=== PATIENT | male | born 1985 | race Caucasian/White ===

== ENCOUNTER 2020-12-17 23:59 | Observation (INO) | payer SELFPAY ==
[2020-12-18] VITALS (21 sets, daily range): BP systolic 99–130; BP diastolic 64–77; PULSE 57–82; RESP 12–20; TEMP 36.4–37.1; O2SAT 90–99; BMI 28.8
--- NOTE | 2020-12-18 00:15 | CTR_ITS ---
PROCEDURE INFORMATION: Exam: CT Abdomen And Pelvis With Contrast Exam date and time: 12/18/2020 12:15 AM Age: 35 years old Clinical indication: Pain and abnormal findings; Abnormal lab test; Elevated wbc; Abdominal pain; Localized; Right lower quadrant (rlq); Additional info: Rlq pain TECHNIQUE: Imaging protocol: Computed tomography of the abdomen and pelvis with contrast. Radiation optimization: All CT scans at this facility use at least one of these dose optimization techniques: automated exposure control; mA and/or kV adjustment per patient size (includes targeted exams where dose is matched to clinical indication); or iterative reconstruction. Contrast material: OMNI 300; Contrast volume: 95 ml; Contrast route: INTRAVENOUS (IV); COMPARISON: US Abdomen* [id number] 10/18/2016 8:53 PM RADIATION DOSE METRICS: Total DLP (mGy-cm): 1574.51 FINDINGS: Liver: Unremarkable liver. Gallbladder and bile ducts: No calcified gallstones or biliary ductal dilatation. Pancreas: Unremarkable pancreas. Spleen: No splenomegaly. Adrenal glands: No adrenal mass. Kidneys and ureters: No hydronephrosis or renal mass. Stomach and bowel: Eidh-hn-dvubwrau dilatation of several jejunal loops. No dilatation of the terminal ileum or multiple ileal loops. Probable transitional zone at the site of an acute bend of a small bowel loop in the left mid abdomen. Elongation of the sigmoid colon into the right middle to lower abdomen. Appendix: Enlargement of the appendix to a maximal diameter of 12.3 mm with haziness and minimal stranding along its tip and near the more proximal aspect of the appendix in the right lower quadrant. Intraperitoneal space: No free air. Vasculature: Inferior looping of the proximal celiac artery. Unremarkable aorta. Lymph nodes: No enlarged nodes. Urinary bladder: Unremarkable as visualized. Reproductive: Unremarkable as visualized. Bones/joints: Old slight compression fractures. Degeneration of a few discs. Soft tissues: Small left inguinal hernia containing fat. CT/CT abdomen pelvis w con* [id number] IMPRESSION: Findings suggestive of acute appendicitis in addition to low-grade small bowel obstruction. No free air. Other findings detailed above. Radiation Dose CTDIVOL = (mGy): DLP = 1574.51 (mGy-cm)
[2020-12-18] MEDS: iohexol 300 mg/mL 100 mL Btl IV (00:45)
[2020-12-18] MEDS: ketorolac 30 mg/mL INJ 15 MG IVP (00:53)
[2020-12-18] MEDS: ondansetron 2 mg/ML SDV 2 mL 4 MG IVP (00:55)
[2020-12-18] MEDS: HYDROmorphone 1 mg/mL INJ 1 mL IVP ×3 (00:57→06:56)
[2020-12-18] MEDS: piperacillin-tazobactam 3.375 GM in sodium chloride 0.9% (plus) 50 ML IV (01:12)
--- NOTE | 2020-12-18 01:48 | W.ED.ABDPA2 ---
HPI - Abdominal Pain General: Chief Complaint: Abdominal Pain Stated Complaint: Need Cat Scan Send from [facility]\Stomach Time Seen by Provider: 12/18/20 00:12 History of Present Illness: HPI narrative: 35-year-old male presenting as a POV transfer from [facility] in [facility] [place]. This patient has had abdominal pain on and off for 2 days. For the last 12 hours or so it is localized to the right lower quadrant, and has become more intense. He had a fever at the prior hospital, and was given Tylenol he denies any vomiting. He is mildly nauseated. No diarrhea MD elicited complaint: abdominal pain Pertinent past history: none Onset (ago): day(s) Pain Consistency: constant Location: RLQ Severity: moderate Quality: stabbing and aching Radiation: RLQ Migration to: no migration Exacerbating factors: movement Relieving factors: nothing Associated Symptoms: Reports anorexia, fever(s) and nausea; Denies change in stool character, GI cramping, diarrhea, dysuria, hematochezia, hematuria, loose stools and vomiting Review of Systems Const: Reports: fever(s) Card: Denies: chest pain Resp: Denies: dyspnea, productive cough or non-productive cough GI: Reports: nausea; Denies: vomiting, diarrhea, GI cramping, change in stool character or hematochezia : Denies: dysuria or hematuria Physical Exam Const: GENERAL APPEARANCE: cooperative and ill appearing HENMT: COMMON NORMALS: normocephalic HEAD & SCALP: normocephalic Eye: COMMON NORMALS: Equal, round and reactive pupils present and EOMs intact bilaterally PUPIL: Yes Equal, round and reactive pupils present Chest: COMMONS NORMALS: normal inspection of the chest Resp: COMMON NORMALS: normal respiratory effort, No use of accessory muscles and clear to auscultation bilaterally AUSCULTATION: clear to auscultation bilaterally Cardio: COMMON NORMALS: regular rate and regular rhythm RATE: regular rate RHYTHM: regular rhythm GI: COMMON NORMALS: Soft to palpation INSPECTION: Yes normal to inspection PALPATION: Yes Soft to palpation, Yes Tenderness to palpation present (GI) Details: RLQ and Yes Guarding due to palpation present (GI) Course Consultations: Consultation #1: Jakub Time: 01:49 Vital Signs: Vital signs: Vital Signs Temperature 98.8 F 12/18/20 00:07 Pulse Rate 82 09/25/21 00:07 Respiratory Rate 16 12/18/20 00:07 Blood Pressure 130/75 12/18/20 01:35 Pulse Oximetry 98 12/18/20 01:35 MDM - Abdominal Pain MDM Narrative: Medical decision making narrative: 12.3 mm diameter appendix by CT scan. No perforation. There is an interesting finding of a low-grade possible small bowel obstruction as well. Surgery was made aware, and will admit. Patient is received IV Zosyn here. White blood cell count was 16.7 other laboratory from the outside facility was normal. His vitals are stable. Blood pressure is 130/75 Discharge Plan Discharge Patient Disposition: Placed in Observation Clinical Impression: Small bowel obstruction Acute appendicitis Qualifiers: Acute appendicitis type: with localized peritonitis Appendicitis gangrene presence: without gangrene Appendicitis perforation presence: without perforation Appendicitis abscess presence: without abscess Qualified Code(s): K35.30 - Acute appendicitis with localized peritonitis, without perforation or gangrene Coding Level of Care Code ED Township Clerk for [facility] Exam Detailed
[2020-12-18] MEDS: nicotine 21 mg Patch 1 PATCH TRANSDERMA (02:57)
[2020-12-18] MEDS: lactated ringers 1,000 ML 150 ML IV (02:57)
--- NOTE | 2020-12-18 07:09 | P.HP_ITS ---
Providers/Chief Complaint Admitting Physician: Warren Call MD Chief Complaint: Need Cat Scan Send from [facility]\Stomach History of Present Illness Francis Sousa is a 35 year old male who says he developed some right lower quadrant abdominal pain 2 days ago. It intensified yesterday. He denies any nausea or vomiting but says that his appetite was decreased yesterday. He has not had any changes in bowel habits and says he had a normal bowel movement yesterday. He denies any chills but says he apparently had a fever when he came into the emergency room in [place] last night when initially evaluated. He was sent to [facility] for further medical evaluation and treatment. A CAT scan showed changes consistent with acute appendicitis. Review of Systems Const: Reports: fever(s) GI: Reports: abdominal pain; Denies: vomiting or change in bowel habits Medications/Allergies Home Medications Medication Instructions Recorded Confirmed Last Taken Type No Known Home Medications 12/18/20 12/18/20 Unknown History Allergies Allergy/AdvReac Type Severity Reaction Status Date / Time No Known Allergies Allergy Verified 12/18/20 01:59 PFSH Acute PFSH: Medical History (Updated 12/18/20 @ 07:11 by Warren Call MD) No significant past medical history Surgical History (Updated 12/18/20 @ 07:11 by Warren Call MD) No significant past surgical history Social History (Updated 12/18/20 @ 07:13 by Warren Call MD) Smoking and tobacco status: current every day smoker e-cigarettes Current occupation: Works in a [employer] Vitals/I&O/Wt Last Vital Signs Temp 97.5 F L 12/18/20 03:34 Pulse 61 12/18/20 03:34 Resp 16 12/18/20 06:56 BP 99/64 12/18/20 03:34 Pulse Ox 97 12/18/20 03:34 12/17/20 12/18/20 12/18/20 22:59 06:59 14:59 Intake Total 50 / 50 Balance 50 / 50 Weight last 48 hrs Weight 190 lb Physical Exam Narrative: EXAM NARRATIVE: The patient was encountered in his hospital room. He does not appear to be in any distress. The pupils are equal. No neck masses are palpated. The lungs are clear anteriorly. The heart is regular. The abdomen reveals bowel sounds but they are hypoactive. Rovsing's sign is positive. The patient's maximum point of tenderness is over McBurney's point in the right lower quadrant. Percussion tenderness is equivocal. No obvious masses are palpated. The extremities reveal no edema. Neurologically the patient appears to be grossly intact. Data CT Abd/Pel: Radiologist's impression: CT abdomen/pelvis 12/17/2020 IMPRESSION: Findings suggestive of acute appendicitis in addition to low-grade small bowel obstruction. No free air. A&P Assessment and plan (1) Acute appendicitis: CT reviewed. I agree with the assessment of acute appendicitis. The patient has some dilated small bowel proximally, but I think this is more a reflection of an ileus as opposed to a true bowel obstruction. The patient had a normal bowel movement yesterday and has not had any obvious obstructive symptoms. I discussed appendicitis with the patient in some detail. Both medical and surgical methods of management were discussed. Laparoscopic and open techniques of surgery were gone over. Surgical risks of bleeding, infection, internal organ injury, etc. were all covered. The patient seems to understand and would like to proceed with an appendectomy today. The patient has been n.p.o. since last night. I will make arrangements for an urgent appendectomy this morning. Status: Acute Qualifiers: Acute appendicitis type: with localized peritonitis Appendicitis abscess presence: without abscess Appendicitis gangrene presence: without gangrene Appendicitis perforation presence: without perforation Qualified Code(s): K35.30 - Acute appendicitis with localized peritonitis, without perforation or gangrene Attestations Medical Necessity Statement*: Based on my medical assessment, presenting symptoms and consideration of the scope of surgical therapy, I expect this patient will require treatment in the hospital for a period of time spanning less than 2 midnights, and is therefore being placed in observation status. Coding Level of Care Code Acute Parachute Rigger for [facility] Diagnoses Acute appendicitis K35.30 Acute appendicitis type: with localized peritonitis Appendicitis abscess presence: without abscess Appendicitis gangrene presence: without gangrene Appendicitis perforation presence: without perforation
--- NOTE | 2020-12-18 08:03 | PC.NURSE ---
Pt taken to pre-op by SAP MANAGER.
[2020-12-18] MEDS: sodium chloride 0.9% 1,000 ML 30 ML IV (08:15)
--- NOTE | 2020-12-18 08:16 | ANES.PREANE2 ---
Pre-Anesthetic Assessment Pre-Anesthetic Assessment: Height/Weight: Height 1.73 m Weight 86.183 kg Temp Pulse Resp BP Pulse Ox 97.5 F L 61 16 99/64 97 12/18/20 03:34 12/18/20 03:34 12/18/20 06:56 12/18/20 03:34 12/18/20 03:34 Proposed Procedure: Operation Date: 12/18/20 08:30 Proposed Procedures p Laparoscopic Appendectomy(Not Applicable) - Warren Call MD Was Beta Bharat taken within 24 hours: N/A Was Clonidine taken within 24 hours: N/A Exam: Pre-Anes Outpt Exam: alert, oriented x 3 and clear to auscultation bilaterally Airway: Submandibular: WNL Cervical ROM: WNL MP: 2 Dentition: Chipped Additional comments: many missing teeth; Right front upper missing as are pre and molars upper right and left areas History/ROS: No significant complaints Pulmonary: Pulmonary: None reported CV/HEM: CV/HEM: None reported : : None reported Hepatic: Hepatic: None reported GI: GI: None reported Metabolic: Metabolic: None reported Musc/skel: Musc/skel: None reported Neuropsych: Neuropsych: None reported Anesthetic Plan: Anesthesia: General Risk of > 500 ml blood loss (7ml/kg in children): No Meds/Allergies Current Medications: Current Medications Generic Name Dose Route Start Last Admin Trade Name Freq PRN Reason Stop Dose Admin Hydromorphone HCl 1 mg 12/18/20 02:20 12/18/20 06:56 Hydromorphone 1 Mg/Ml Inj 1 Ml IVP 1 mg Q2H PRN Administration PAIN Lactated Ringer's 1,000 mls @ 150 m ls/hr 12/18/20 02:20 12/18/20 02:57 Lactated Ringers IV 150 mls/hr .Q6H40M ISAAC Administration Nicotine 1 patch 12/18/20 03:00 12/18/20 02:57 Nicotine 21 Mg P atch TRANSDERMA 1 patch DAILY ISAAC Administration PFSH Anesthesia PFSH: Medical History (Updated 12/18/20 @ 07:11 by Warren Call MD) No significant past medical history Surgical History (Updated 12/18/20 @ 07:11 by Warren Call MD) No significant past surgical history Social History (Updated 12/18/20 @ 07:13 by Warren Call MD) Smoking and tobacco status: current every day smoker e-cigarettes Current occupation: Works in a [employer] Anesthesia Cardiac Studies: No Data to Display
[2020-12-18] MEDS: metroNIDAZOLE IV 500 MG/100 ML PREMIX 100 MG IV (08:40)
--- NOTE | 2020-12-18 09:14 | PM.OP ---
Operative Report Date of procedure: December 18, 2020 Pre-op Diagnosis: Acute appendicitis. Post-op diagnosis: same Procedure Done: Laparoscopic appendectomy. Specimens removed/disposition: Appendix. Surgeon: Warren Call Anesthesia: General Estimated blood loss (mL): 3 Complications: None. Condition: stable Disposition: PACU Procedure: The patient was brought to the Operating Room and was placed in a supine position on the operating room table. General endotracheal anesthesia was induced. The abdomen was prepped and draped in a sterile fashion. A small vertical incision was carried out in the superior aspect of the umbilicus. Blunt dissection was carried out down to the fascia, which was grasped with a Antoni clamp. A stay suture of 0 Vicryl was placed on either side of the midline and the midline fascia was incised. The underlying peritoneum was opened bluntly and the John port was placed directly into the peritoneal cavity and was held in place with the inflatable balloon. The peritoneal cavity was insufflated with carbon dioxide. The laparoscope was used to inspect the peritoneal cavity. No gross abnormalities were initially noted. Two 5-millimeter ports were placed in the left lower quadrant under direct vision. The patient was tilted in a Trendelenburg position and slightly to the left side. A laparoscopic [place] was used to elevate the cecum and the appendix was identified. The appendix was dilated throughout its length and had a small amount of exudate distally. No evidence of gross perforation was present. The appendix was freed using blunt dissection and was then elevated. The mesoappendix was divided using cautery to maintain hemostasis at the base of the appendix. The base of the appendix appeared healthy and was divided using an endoscopic stapler. The appendix was removed from the peritoneal cavity after being placed in a laparoscopic bag. The right lower quadrant and pelvis were irrigated. The staple line on the cecum was identified and appeared to be in good condition. The John port was removed from the umbilical site and the stay sutures of Vicryl were tied to each other at the umbilicus. An additional yiyifi-za-wfklz suture of 0 Vicryl was placed, closing the fascial defect so that it was airtight. A final round of irrigation was carried out in the right lower quadrant and the pelvis. No ongoing problems were seen. The remaining ports were removed from the abdominal wall as the pneumoperitoneum was evacuated. All skin incisions were closed using inverted interrupted sutures of 4-0 Vicryl. Benzoin and Steri-Strips were placed over the incisions and Band-Aids followed. The patient was taken to the Recovery Room in stable condition postoperatively.
--- NOTE | 2020-12-18 09:25 | P.DS_ITS ---
Discharge Providers Date of Admission: 12/18/20 02:20 Date of Discharge: December 18, 2020 Attending Provider at Admission: Warren Call MD Attending Provider at Discharge: Warren Call MD Diagnoses at Discharge Discharge Diagnosis (1) Acute appendicitis: Status: Acute Qualifiers: Acute appendicitis type: with localized peritonitis Appendicitis abs cess presence: without abscess Appendicitis gangrene presence: without gangrene Appendicitis perforation presence: without perforation Qualified Code(s): K35.30 - Acute appendicitis with localized peritonitis, without perforation or gangrene Reason for Visit Reason for Visit: Need Cat Scan Send from [facility] Course Hospital Course Francis is a 35-year-old white male who developed abdominal pain 2 days prior to presentation to the emergency department in [place]. Appendicitis was suspected and he was sent to [place] for further management. A CAT scan showed changes consistent with acute appendicitis. The patient was taken to the operating room the same day and a laparoscopic appendectomy was performed. There was no evidence of gross perforation. Postoperatively the patient did very well and by later that day indicated he was anxious to go home. He was instructed with respect to wound care, activity limitations, diet, etc. A follow-up appointment will be arranged for him to see me as an outpatient in the office Physical Exam Narrative: EXAM NARRATIVE: Vital signs stable. Laparoscopic incisions look good per nursing. Discharge Data Data Completed and Pending: Completed Studies During Hospitalization Category Date Time Status CT abdomen pelvis w con* [id number] Urge nt Cat Scan 12/18/20 00:15 Completed Pending at discharge Category Date Time Status Pathology: Surgic al [PTH] Routine Pth 12/18/20 08:58 Ordered Vitals: Last Vital Signs Temp 97.5 F L 12/18/20 03:34 Pulse 61 12/18/20 03:34 Resp 16 12/18/20 06:56 BP 99/64 12/18/20 03:34 Pulse Ox 97 12/18/20 03:34 Discharge Plan Discharge Patient Disposition: Home Condition: Stable Prescriptions: New hydrocodone-acetaminophen 5-325 mg tablet 1 - 2 tab PO Q5H PRN (Reason: pain) Qty: 30 RF: 0 Discharge Orders: Discharge Order (Routine); Ordered 12/18/20 Ordered By: Warren Call Referrals: Warren Call MD [Physician] - 7-10 days (Please call Dr. Call's office on Sunday to schedule an appointment to be seen in 7-10 days.) Discharge Diet: Advance as tolerated Discharge Activity: Limit activity as instructed Patient Instructions: Hydrocodone/Acetaminophen (By mouth), Laparoscopic Appendectomy (DC), Opioid Safety Activity Restrictions/Additional Instructions: 1. Discharge to home today. 2. Appointment to see Dr. Call in 10-14 days. 3. Bandages / bandaids off tomorrow, leave Steri-Strip(s) on, may shower. 4. [place] 5/325 1-2 tablets by mouth every 5 hours as needed for pain. #30, no refills. No lifting over 20 pounds, no repetitive bending or twisting, no strenuous pushing / pulling or other heavy activity. Ambulate regularly. May go up and down steps if needed. Discharge Attestations Time Spent in Discharge Care*: less than 30 min Quality Metrics Clinical Quality Measures During this hospital stay, did patient experience: None Coding Level of Care Code Acute Chg FW DC note Diagnoses Acute appendicitis K35.30 Acute appendicitis type: with localized peritonitis Appendicitis abscess presence: without abscess Appendicitis gangrene presence: without gangrene Appendicitis perforation presence: without perforation
[2020-12-18] MEDS: piperacillin-tazobactam 3.375 GM in sodium chloride 0.9% (plus) 50 ML 1.5 GM IV (10:21)
[2020-12-18] MEDS: heparin 5,000 unit/mL INJ 1 mL 5000 UNIT SUBCUT (10:34)
[2020-12-18] MEDS: HYDROcodone-acetaminophen 5-325 mg Tablet PO ×2 (10:34→16:16)
--- NOTE | 2020-12-20 14:56 | PC.RESP ---
SMOKING CESSATION INFORMATION SENT TO PATIENT.
--- NOTE | 2020-12-22 10:13 | PC.SOCIAL ---
discharge follow up call made, unable to reach patient. multiple calls made. message left.
== END 2020-12-18 16:16 | disposition home or self-care (01) ==
LOC: ER 12-18 02:04 → MEDSURG 12-18 07:26
PROVIDERS: Admitting Provider Surgery; Emergency Provider Emergency Medicine; Visit Provider Surgery
PROC: 0DTJ4ZZ Resection of Appendix, Percutaneous Endoscopic Approach (ICD-10-PCS; CPT 44970; principal; 2020-12-18 08:30)
DX: K35.30 Acute appendicitis with localized peritonitis, without perforation or gangrene (principal); F17.290 Nicotine dependence, other tobacco product, uncomplicated
CPT/HCPCS: 44970; 74177; 88304; 96365; 96367; 96372; 96375; 99285; G0378; J0690; J1100; J1170; J1644; J1885; J2270; J2405; J2543; J2710; J3010; J3490; J7030; Q9967; S0030

== ENCOUNTER 2024-01-21 12:05 | Emergency (ER) | payer SELFPAY ==
--- NOTE | 2024-01-21 12:08 | XRR_ITS ---
PROCEDURE INFORMATION: Exam: XR Chest Exam date and time: 01/21/2024 12:24 PM Age: 38 years old Clinical indication: Pain; Angina pectoris; Additional info: Cp TECHNIQUE: Imaging protocol: Radiologic exam of the chest. Views: 1 view. COMPARISON: CT abdomen pelvis w con* [id number] 12/18/2020 12:41 AM FINDINGS: Lungs: Unremarkable. No consolidation. Pleural spaces: Unremarkable. No pleural effusion. No pneumothorax. Heart/Mediastinum: Unremarkable. No cardiomegaly. Bones/joints: Unremarkable. XR/XR chest 1V portable [id number] IMPRESSION: No acute findings.
--- NOTE | 2024-01-21 12:08 | ECG_ITS ---
[facility] Test Date: 2024-01-21 Pat Name: Francis Sousa Department: Room: Gender: Male Technical Mgr: : 1985 Requested By: Channing Cook Order Number: [id number] Yuly MD: Easton Brito M.D. Measurements Intervals [place] Rate: 72 P: 30 VA: 169 QRS: 42 QRSD: 98 T: 8 QT: 398 QTc: 438 Interpretive Statements SINUS RHYTHM NONSPECIFIC T-WAVE ABNORMALITY Compared to ECG 10/18/2016 19:42:45 T-wave abnormality now present Electronically Signed On 01-22-2024 00:02:37 CDT by Easton Brito M.D. [email or web address]
[2024-01-21 12:19] VITALS: BP 134/86; PULSE 75; RESP 16; TEMP 36.6; O2SAT 96; BMI 31.5
[2024-01-21 12:58] LABS: Basophils % 0.5 %; Eosinophils # 0.1 10^3/uL (0.0-0.8); Hematocrit 42.8 % (37-53); Lymphocytes # 2.4 10^3/uL (0.8-4.8); Lymphocytes % 37.5 %; Mean Corpuscular HGB Conc 35.5 g/dL (30-55); Mean Corpuscular Volume 90.1 fl (82-101); Mean Platelet Volume 9.9 fL (7.4-10.4); Monocytes # 0.5 10^3/uL (0.2-0.9); Monocytes % 7.1 %; Neutrophils # 3.43 10^3/uL (1.8-7.7); Neutrophils % 52.7 %; Nucleated Red Blood Cells % 0 %; Platelet Count 298 10^3/cmm (157-399); Red Blood Count 4.75 10^6/uL (3.85-5.65); Red Cell Distribution Width 12.3 % (12.1-15.1)
[2024-01-21 13:06] LABS: INR 0.91 (0.8-1.2)
[2024-01-21 13:11] LABS: Troponin(5th) Baseline < 6 ng/L (0-15)
[2024-01-21 13:16] LABS: Alanine Aminotransferase 47 U/L (0-41); Albumin Level 4.3 g/dL (3.5-5.2); Alkaline Phosphatase 59 U/L (40-130); Anion Gap 15.4 (5-19); Aspartate Amino Transferase 33 U/L (0-40); Blood Urea Nitrogen 13 mg/dL (6-20); Carbon Dioxide 26 mmol/L (22-29); Chloride 103 mmol/L (98-107); Creatinine Clr Calc Pharmacy 119.7604; Globulin 2.6 g/dL (1.3-4.6); Glomerular Filtration Rate 84.1 mL/min (90-130); Glucose 112 mg/dL (65-115); Lipase 27 U/L (13-60); Osmolality Calculated 291 mOsm/kg (285-295); Potassium 4.4 mmol/L (3.5-5.1); Sodium 140 mmol/L (136-145); Total Bilirubin 0.4 mg/dL (0.15-1.2); Total Protein 6.9 g/dL (6.6-8.7)
--- NOTE | 2024-01-21 13:46 | ED_ITS ---
HPI - Chest Pain 2 General: Chief Complaint: Chest Pain Stated Complaint: cp,pain n neck Time Seen by Provider: 01/21/24 13:46 History of Present Illness: 38-year-old male presents emergency room complaint of chest pain began last night while he was at rest radiates to the left side -left arm and left neck. No shortness of breath has not noticed anything exacerbates or relieves it no fever sweats or chills. Pain slightly worse with deep inspiration. Not worse with palpation. Initially began in the chest now is rating to the neck and the arm. No fever or chills no productive cough Associated symptoms: Deny abdominal pain, dyspnea, fever(s) or palpitations Related Data Previous Rx's Medication Instructions Recorded omeprazole 20 mg capsule,delayed 20 mg PO BID 10 days #40 caps 01/21/24 release Allergies Allergy/AdvReac Type Severity Reaction Status Date / Time No Known Allergies Allergy Verified 01/21/24 12:23 Review of Systems 2 Const: Denies: fever(s) or chills Card: Reports: chest pain; Denies: palpitations, irregular heart rhythm, edema, swelling of feet/ankles or dyspnea on exertion Resp: Denies: dyspnea GI: Denies: abdominal pain : Denies: dysuria, urinary frequency or urinary urgency Musc: Denies: neck pain or back pain Skin/Breast: Denies: rash PFSH ED 2 PFSH: Medical History No significant past medical history Surgical History No significant past surgical history Social History Smoking and tobacco/nicotine status: current every day tobacco/nicotine user e- cigarettes Current occupation: Works in a [employer] Physical Exam 2 Const: COMMON NORMALS: no acute distress GENERAL APPEARANCE: cooperative and comfortable ORIENTATION/CONSCIOUSNESS: Yes awake, Yes oriented to person, Yes oriented to place and Yes oriented to time HENMT: COMMON NORMALS: normocephalic, atraumatic and hearing grossly normal bilaterally HEAD & SCALP: normocephalic and atraumatic Resp: COMMON NORMALS: normal respiratory effort, No retractions, No use of accessory muscles and clear to auscultation bilaterally AUSCULTATION: clear to auscultation bilaterally Cardio: COMMON NORMALS: regular rate, regular rhythm and No murmurs present (Cardio) RATE: regular rate RHYTHM: regular rhythm GI: COMMON NORMALS: Soft to palpation and No hepatosplenomegaly present A USCULTATION: Yes normoactive bowel sounds PALPATION: Yes Soft to palpation, No Tenderness to palpation present (GI), No Guarding due to palpation present (GI) and Yes No hepatosplenomegaly present Extremity: COMMON NORMALS: normal to inspection, capillary refill normal, no clubbing, cyanosis or edema, no calf tenderness and no pedal edema Neuro: SENSORIUM/ORIENTATION: Yes oriented to person, Yes oriented to place and Yes oriented to time Skin: COMMON NORMALS: no rashes or lesions noted GENERAL SKIN EXAM: no rashes or lesions noted Course 2 Vital Signs: Vital signs: Vital Signs Temperature 97.8 F 01/21/24 12:19 Pulse Rate 75 01/21/24 12:19 Respiratory Rate 16 01/21/24 12:19 Blood Pressure 134/86 01/21/24 12:19 Pulse Oximetry 96 01/21/24 12:19 Oxygen Delivery Me thod Room Air 01/21/24 12:19 MDM - Chest Pain Medical Decision Making EKGs cardiac enzymes did not show any acute changes. Reviewed as found in the chart. Chest x-ray was normal there is no evidence of pneumothorax pneumonia or widening mediastinum. Clinically does not have any evidence of a PE or DVT on exam. Discharge patient home. His chest pain may be related to GI causes. Another possibility would be cervical radiculopathy although it is very atypical for that he does not have any neck pain at this time. Will discharge patient home started on Prilosec 20 mg twice daily for 10 days then once daily. Follow- up with primary care. Return if has further problems. Medical Records I reviewed the patient's medical records. Lab Data I reviewed the patient's lab results. 01/21/24 12:46 01/21/24 12:46 Radiology Impressions Chest X-Ray 01/21/24 12:08 IMPRESSION: No acute findings. Laboratory Results WBC 6.50 10^3/uL (3.29-11.43) 01/21/24 12:46 RBC 4.75 10^6/uL (3.85-5.65) 01/21/24 12:46 Hgb 15.20 g/dL (11.27-16.99) 01/21/24 12:46 Hct 42.8 % (37-53) 01/21/24 12:46 MCV 90.1 fl (82-101) 01/21/24 12:46 MCH 32.0 pg (27-33) 01/21/24 12:46 MCHC 35.5 g/dL (30-55) 01/21/24 12:46 RDW 12.3 % (12.1-15.1) 01/21/24 12:46 Plt Count 298 10^3/cmm (157-399) 01/21/24 12:46 MPV 9.9 fL (7.4-10.4) 01/21/24 12:46 Neut % (Auto) 52.7 % 01/21/24 12:46 Lymph % (Auto) 37.5 % 01/21/24 12:46 [place] % (Auto) 7.1 % 01/21/24 12:46 Eos % (Auto) 2.0 % 01/21/24 12:46 Baso % (Auto) 0.5 % 01/21/24 12:46 Neut # (Auto) 3.43 10^3/uL (1.8-7.7) 01/21/24 12:46 Lymph # (Auto) 2.4 10^3/uL (0.8-4.8) 01/21/24 12:46 [place] # (Auto) 0.5 10^3/uL (0.2-0.9) 01/21/24 12:46 Eos # (Auto) 0.1 10^3/uL (0.0-0.8) 01/21/24 12:46 Baso # (Auto) 0.0 10^3/uL (0.0-0.1) 01/21/24 12:46 Nucleated RBC % (auto) 0 % 01/21/24 12:46 Nucleated RBCs # 0.0 /100WBC 01/21/24 12:46 PT 12.60 SECONDS (12.1-14.9) 01/21/24 12:46 INR 0.91 (0.8-1.2) 01/21/24 12:46 Sodium 140 mmol/L (136-145) 01/21/24 12:46 Potassium 4.4 mmol/L (3.5-5.1) 01/21/24 12:46 Chloride 103 mmol/L (98-107) 01/21/24 12:46 Carbon Dioxide 26 mmol/L (22-29) 01/21/24 12:46 Anion Gap 15.4 (5-19) 01/21/24 12:46 BUN 13 mg/dL (6-20) 01/21/24 12:46 Creatinine 1.0 mg/dL (0.7-1.2) 01/21/24 12:46 GFR Calculation 84.1 mL/min (90-130) L 01/21/24 12:46 Glucose 112 mg/dL (65-115) 01/21/24 12:46 Calculated Osmolality 291 mOsm/kg (285-295) 01/21/24 12:46 Calcium 9.0 mg/dL (8.5-10.5) 01/21/24 12:46 Total Bilirubin 0.4 mg/dL (0.15-1.2) 01/21/24 12:46 AST 33 U/L (0-40) 01/21/24 12:46 ALT 47 U/L (0-41) H 01/21/24 12:46 Alkaline Phosphatase 59 U/L (40-130) 01/21/24 12:46 Troponin T Baseline < 6 ng/L (0-15) 01/21/24 12:46 Troponin T 120 Minute 6.00 ng/L (0-15) 01/21/24 14:37 Delta Troponin T 0.24873 ABS# (0-10) 01/21/24 14:37 Total Protein 6.9 g/dL (6.6-8.7) 01/21/24 12:46 Albumin 4.3 g/dL (3.5-5.2) 01/21/24 12:46 Globulin 2.6 g/dL (1.3-4.6) 01/21/24 12:46 Lipase 27 U/L (13-60) 01/21/24 12:46 All radiology interpretation(s) finalized by discharge Discharge Plan Discharge Patient Disposition: Home Clinical Impression: Atypical chest pain Condition: Stable Prescriptions: New omeprazole 20 mg capsule,delayed release(DR/EC) 20 mg PO BID 10 Days Qty: 40 0RF Rx Instructions: 1 p.o. twice daily x 10 days then 1 p.o. daily Discharge Orders: Discharge ED (Routine); Ordered 01/21/24 Ordered By: Raulito Mccracken Discharge Diet: Usual diet Discharge Activity: Increase activity as tolerated Patient Instructions: Opioid Safety, Pain Management Activity Restrictions/Additional Instructions: Thank you for choosing [facility] for your healthcare needs today. It is very important that you follow up as instructed or that you return to the Emergency Department should you have concerns or if your condition changes or worsens in any way. You are seen in the emergency room with complaints of chest pain left arm and leg pain. There is no sign of acute coronary syndrome no sign of PE or DVT. Chest x-ray was normal without signs of pneumothorax pneumonia or widening of the mediastinum. Will discharge home recommend you use omeprazole [id number] 20 mg twice a day. Follow-up with your primary care doctor return to the emergency room for worsening or changing symptoms. If arm pain persist you may need further evaluation through your primary care doctor. Coding Level of Care Code ED Acute Dialysis Registered Nurse for Chayo Will
--- NOTE | 2024-01-21 14:08 | ECG_ITS ---
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 Measurements Intervals [place] Rate: 63 P: 29 VA: 171 QRS: 42 QRSD: 94 T: 42 QT: 380 QTc: 391 Interpretive Statements SINUS RHYTHM Compared to ECG 01/21/2024 12:11:21 T-wave abnormality no longer present Electronically Signed On 01-22-2024 00:56:48 CDT by Easton Brito M.D. [email or web address]
[2024-01-21 15:24] LABS: Troponin 5 2HR Delta 0.00001 ABS# (0-10)
[2024-01-21 16:16] VITALS: BP 136/70; PULSE 84; RESP 18; O2SAT 98
== END 2024-01-21 16:21 | disposition home or self-care (01) ==
PROVIDERS: Emergency Medicine; Emergency Provider Family Medicine
DX: R07.89 Other chest pain (principal)
CPT/HCPCS: 36415; 71045; 80053; 83690; 84484; 85025; 85610; 93005; 99285